=== PATIENT | female | born 1990 | race Hispanic/Latino ===

== ENCOUNTER 2019-09-03 22:30 | Emergency (ER) | payer OTHER ==
[2019-09-03] MEDS ORDERED: ORPHENADRINE CITRATE 30 MG/ML ML ONE (22:48)
[2019-09-03] MEDS ORDERED: KETOROLAC TROMETHAMINE 60 MG/2 ML VIAL ONE (22:48)
[2019-09-03] MEDS ORDERED: LIDOCAINE 5% TOPICAL PATCH TP ONE (22:49)
== END 2019-09-04 00:31 | disposition home or self-care (01) ==
LOC: EDH 22:30
DX: R07.89 Other chest pain (principal); M62.838 Other muscle spasm; M79.602 Pain in left arm; R06.00 Dyspnea, unspecified
CPT/HCPCS: 71046; 93005; 96372 ×2; 99284; J1885; J2360